=== PATIENT | female | born 1960 | race Caucasian/White ===

== ENCOUNTER 2016-08-06 13:18 | Emergency (ER) | payer MEDICARE, MEDICAID ==
[2016-08-06 13:48] LABS: URINE BILIRUBIN NEGATIVE (NEGATIVE); URINE BLOOD TRACE (NEGATIVE); URINE GLUCOSE (UA) NEGATIVE (NEGATIVE); URINE LEUKOCYTE ESTERASE TRACE (NEGATIVE); URINE NITRITE NEGATIVE (NEGATIVE); URINE PROTEIN 2+ (NEGATIVE); URINE UROBILINOGEN NORMAL (0-1 mg/dl)
[2016-08-06 13:59] LABS: URINE APPEARANCE HAZY; URINE COLOR YELLOW
[2016-08-06 14:01] LABS: URINE EPITHELIAL CELLS 0-2 /hpf; URINE WBC 15-20 /hpf
[2016-08-06 14:02] LABS: URINE BACTERIA 1+
[2016-08-06 14:29] LABS: ABSOLUTE NEUTROPHIL COUNT 4.8 K/mm3 (1.8-7.7); BASO % 0.3 % (0.2-1.0); EOS # 0.2 (0.0-0.5); EOS % 2.8 % (0.9-2.9); HEMATOCRIT 41.3 % (37.0-47.0); HEMOGLOBIN 14.2 gm/l (12.0-16.0); IMM NEUT% 0.3 % (0-1); LYMPH % 26.1 % (15-45); MEAN CELL VOLUME 97.4 fl (81.0-99.0); MEAN CORPUSCULAR HEMOGLOBIN 33.5 pg (27.0-31.0); MEAN CORPUSCULAR HGB CONC 34.4 g/dl (33.0-37.0); MEAN PLATELET VOLUME 11.1 fl (7.4-10.4); MONO # 0.5 (0.0-0.8); MONO % 6.1 % (4-12); NEUT % 64.4 % (43-75); PLATELET COUNT 193 K/mm3 (130-400); RED CELL DISTRIBUTION WIDTH 12.5 % (11.5-14.5)
[2016-08-06] MEDS ORDERED: ERTAPENEM SODIUM 1 G VIAL ONE (14:45)
[2016-08-06] MEDS ORDERED: SODIUM CHLORIDE 0.9% 50 ML IV ONE (14:45)
[2016-08-06 14:58] LABS: CALCIUM 9.6 mg/dL (8.6-10.3)
== END 2016-08-06 15:39 | disposition home or self-care (01) ==
LOC: ED 13:18
DX: N39.0 Urinary tract infection, site not specified (principal); E03.9 Hypothyroidism, unspecified; I10 Essential (primary) hypertension; E11.9 Type 2 diabetes mellitus without complications; B19.20 Unspecified viral hepatitis C without hepatic coma; E78.00 Pure hypercholesterolemia, unspecified; B18.2 Chronic viral hepatitis C; Z79.4 Long term (current) use of insulin; Z79.84 Long term (current) use of oral hypoglycemic drugs; Z94.0 Kidney transplant status
CPT/HCPCS: 85025; 87086; 80048; 81001; 99283 ×2; 96365; J7050; J1335